=== PATIENT | female | born 1985 | race Caucasian/White ===

== ENCOUNTER → 2016-12-06 | Outpatient (CLI) | payer OTHER ==
[~2016-12-06] MED LIST: OXYC1SOL5 PO; PRENTAB72 PO; SENN1TAB11 PO; [UNRECOGNIZED DRUG - CODE] PO
== END ==
LOC: HPND 09:03
PROVIDERS: ATTEND Obstetrics & Gynecology
DX: O35.1XX0 Maternal care for (suspected) chromosomal abnormality in fetus, not applicable or unspecified (principal); Z3A.20 20 weeks gestation of pregnancy
CPT/HCPCS: 76805

== ENCOUNTER → 2016-12-29 | Outpatient (CLI) | payer OTHER | LOC: HPND 13:53 | PROVIDERS: ATTEND Obstetrics & Gynecology | DX: O35.8XX0 Maternal care for other (suspected) fetal abnormality and damage, not applicable or unspecified (principal) | CPT/HCPCS: 76811 ==

== ENCOUNTER 2017-04-14 00:11 | Inpatient (IN) | payer BC ==
[2017-04-14] VITALS (22 sets, daily range): BP systolic 114–138; BP diastolic 71–91; PULSE 52–64; RESP 16–18; TEMP 97.7–98.5; O2SAT 95–100
[~2017-04-14] VITALS: Ht 147.3 cm; Wt 66.0 kg
[2017-04-14] MEDS ORDERED: LACTATED RINGER'S 1000 ML INJ 1,000 ML IV SCH ×2 (00:57→13:23)
[2017-04-14] MEDS ORDERED: LACTATED RINGER'S 1000 ML INJ 1,000 ML IV PRN (00:57)
[2017-04-14] MEDS ORDERED: ONDANSETRON HCL 4 MG/2 ML VIAL IV PUSH PRN (01:00)
[2017-04-14] MEDS ORDERED: MINERAL OIL 10 ML VIAL TOPICAL PRN (01:00)
[2017-04-14] MEDS ORDERED: CITRIC ACID-SODIUM CITRATE LIQ 30 ML UDC PO SCH (01:00)
[2017-04-14] MEDS ORDERED: LIDOCAINE HCL 1% 50 ML VIAL I-DERMAL PRN (01:00)
[2017-04-14] MEDS ORDERED: SODIUM CHLORID 0.9% 500 ML INJ 500 ML IV PRN (01:00)
[2017-04-14] MEDS ORDERED: OXYTOCIN 30 UNITS-500ML PREMIX 500 ML IV ONE ×2 (01:00→08:30)
[2017-04-14] MEDS ORDERED: LIDOCAINE HCL 1% 50 ML VIAL INFIL PRN (01:00)
--- NOTE | 2017-04-14 01:07 | PD ---
HPI Chief Complaint leakage of fluid. Date Seen: Apr 14, 2017 Time Seen: 01:01 Travel History International Travel<30 Days: No Contact w/Intl Traveler<30Days: No Known Affected Area: No History of Present Illness HPI pt is a 31 y/o @ 38 6/7 weeks (gestational carrier) present w/ c/o lof. pt. states at ~ 1100 on 04/13/17 felt gush of fluid. +FM, no vb. pt. for sched repeat cd on 04/15/17. on exam pt. noted to be grossly srom. pt. states irreg ctxs. Weeks Gestation: 38 Para: 2 : 3 History Past Surgical History Narrative Surgical CD x 2. Family History Family History: Negative Social History Alcohol Use: No Tobacco Use: No Substance Abuse: No Allergies-Medications (Allergen,Severity, Reaction): Coded Allergies: No Known Allergies (Unverified , 03/28/12) Home Meds Active Scripts Oxycodone W/ Acetaminophen (Oxycodone/Acetaminophen 5-325 mg/5Ml) 1 Tab Tab, 2 TAB PO Q4H Y for PAIN SCALE 6 TO 10, #30 TAB Prov:Man Walker MD 09/27/14 Reported Medications Docusate Sod/Senna (Senna Plus 8.6-50 mg) 1 Tab Tab, 1 TAB PO BIDPRN, #30 03/31/12 Naproxen Sodium (Anaprox) 275 Mg Tab, 275 MG PO [id number], #30 03/31/12 Vit W/ Ferrous Fumara () Tab, 1 PO WHILE 03/28/12 Review of Systems Except as stated in HPI: all other systems reviewed are Neg Physical Exam Narrative GENERAL: Well-nourished, well-developed patient. SKIN: Warm and dry. HEAD: Normocephalic and atraumatic. EYES: No scleral icterus. No injection or drainage. ENT: No nasal drainage noted. Mucous membranes pink. Airway patent. NECK: Supple, trachea midline. No JVD. CARDIOVASCULAR: Regular rate and rhythm without murmurs, gallops, or rubs. RESPIRATORY: Breath sounds equal bilaterally. No accessory muscle use. BREASTS: Bilateral exam showed no masses , no retractions, no nipple discharge. ABDOMEN/GI: Abdomen soft, non-tender, bowel sounds present, no rebound, no guarding Gravid GENITOURINARY: External Genitalia: intact and normal in appearance Presentation: cephalic Membranes:ruptured Uterine Contractions: irreg FHT's: Category: 1 Variability: mod Decels: none EXTREMITIES: No cyanosis or edema. BACK: Nontender without obvious deformity. No CVA tenderness. NEUROLOGICAL: Awake and alert. Motor and sensory grossly within normal limits. Five out of 5 muscle strength in all muscle groups. Normal speech. Data Data Vital Signs Reviewed: Yes Orders Orders Ob (2e) Additional Admit Info (04/14/17 00:38) Admit To Inpatient (04/14/17 ) Code Status (04/14/17 00:57) Vital Signs (Adult) .Per protocol (04/14/17 00:57) Heart (04/14/17 00:57) Amnioinfusion (04/14/17 00:57) Urinary Catheter Management .ONCE (04/14/17 00:57) Diet Npo (04/14/17 Breakfast) Lactated Ringer's 1000 Ml Inj (Lr 1000 M (04/14/17 00:57) Lactated Ringer's 1000 Ml Inj (Lr 1000 M (04/14/17 00:57) Sodium Chlorid 0.9% 500 Ml Inj (Ns 500 M (04/14/17 01:00) Sodium Chlor 0.9% 1000 Ml Inj (Ns 1000 M (04/14/17 01:17) Lidocaine 1% Inj (50 Ml) (Xylocaine 1% I (04/14/17 01:00) Citric Acid-Sodium Citrate Liq (Bicitra (04/14/17 01:00) Ondansetron Inj (Zofran Inj) (04/14/17 01:00) Fentanyl Inj (Fentanyl Inj) (04/14/17 01:00) Fentanyl Inj (Fentanyl Inj) (04/14/17 01:00) Complete Blood Count With Diff (04/14/17 00:57) Hold Clot (04/14/17 00:57) Abo/Rh Blood Type (04/14/17 00:57) Urinalysis - C+S If Indicated (04/14/17 00:57) Drug Screen, Random Urine (04/14/17 00:57) Ob/Psych Drug Screen, Urine (04/14/17 00:57) Resp Oxygen Non Rebreathe Mask (04/14/17 ) ^ Epidural / Intrathecal Infus (04/14/17 00:57) Oxytocin 30 Units-500ml Premix (Pitocin (04/14/17 01:00) Lidocaine 1% Inj (50 Ml) (Xylocaine 1% I (04/14/17 01:00) Light Mineral Oil (Muri-Lube Oil) (04/14/17 01:00) Inpatient Certification (04/14/17 ) [facility] Medical Record Reviewed: Yes Plan @ 38 6/7 weeks w/ srom and h/o cd x2. pt. to have repeat cd. cd d/w pt. risks/benefits and alternatives d/w pt. all ? answered. pt. sign consent w/o coercion. Ozzie Quiros Jr., MD Apr 14, 2017 01:07
[2017-04-14] MEDS ORDERED: SODIUM CHLOR 0.9% 1000 ML INJ 1,000 ML IV PRN (01:17)
[2017-04-14 01:41] LABS: AUTOMATED NEUTROPHIL # 6.5 TH/MM3 (1.8-7.7); BASOPHIL % 0.5 % (0.0-2.0); EOSINOPHIL # 0.2 TH/MM3 (0-0.4); HEMATOCRIT 35.5 % (35.0-46.0); HEMOGLOBIN 12.7 GM/DL (11.6-15.3); LYMPH % 17.5 % (9.0-44.0); LYMPHOCYTE # 1.6 TH/MM3 (1.0-4.8); MEAN CELL VOLUME 83.9 FL (80.0-100.0); MEAN CORPUSCULAR HEMOGLOBIN 29.9 PG (27.0-34.0); MEAN CORPUSCULAR HGB CONC 35.7 % (32.0-36.0); MEAN PLATELET VOLUME 10.2 FL (7.0-11.0); MONO % 7.9 % (0.0-8.0); MONOCYTE # 0.7 TH/MM3 (0-0.9); NEUT % 72.1 % (16.0-70.0); PLATELET COUNT 182 TH/MM3 (150-450); RED BLOOD COUNT 4.24 MIL/MM3 (4.00-5.30); RED CELL DISTRIBUTION WIDTH 12.9 % (11.6-17.2)
[2017-04-14 02:02] LABS: AMORPHOUS SEDIMENT, URINE MOD; BACTERIA, URINE RARE /hpf; BILIRUBIN, URINE NEG (NEG); BLOOD, URINE MOD (NEG); GLUCOSE,URINE NEG (NEG); KETONE, URINE NEG (NEG); MUCUS URINE FEW /lpf (OCC); NITRITE,URINE NEG (NEG); SQUAMOUS EPITHELIAL CELL URINE 57 /hpf (0-5); URINE COLOR LIGHT-YELLOW (YELLW/STRAW); URINE LEUKOCYTE ESTERASE NEG (NEG)
--- NOTE | 2017-04-14 02:12 | HHI.HP ---
History & Physical H&P HPI Chief Complaint leakage of fluid. Date Seen: Apr 14, 2017 Time Seen: 01:01 Travel History International Travel<30 Days: No Contact w/Intl Traveler<30Days: No Known Affected Area: No History of Present Illness HPI pt is a 31 y/o @ 38 6/7 weeks (gestational carrier) present w/ c/o lof. pt. states at ~ 1100 on 04/13/17 felt gush of fluid. +FM, no vb. pt. for sched repeat cd on 04/15/17. on exam pt. noted to be grossly srom. pt. states irreg ctxs. Weeks Gestation: 38 Para: 2 : 3 History (Limited) History Past Surgical History Narrative Surgical CD x 2. Family History Family History: Negative Social History Alcohol Use: No Tobacco Use: No Substance Abuse: No Allergies-Medications Allergies-Medications (Allergen,Severity, Reaction): Coded Allergies: No Known Allergies (Unverified , 03/28/12) Home Meds Active Scripts Oxycodone W/ Acetaminophen (Oxycodone/Acetaminophen 5-325 mg/5Ml) 1 Tab Tab, 2 TAB PO Q4H Y for PAIN SCALE 6 TO 10, #30 TAB Prov:Man Walker MD 09/27/14 Reported Medications Docusate Sod/Senna (Senna Plus 8.6-50 mg) 1 Tab Tab, 1 TAB PO BIDPRN, #30 03/31/12 Naproxen Sodium (Anaprox) 275 Mg Tab, 275 MG PO [id number], #30 03/31/12 Vit W/ Ferrous Fumara () Tab, 1 PO WHILE 03/28/12 ROS Review of Systems Except as stated in HPI: all other systems reviewed are Neg Physical Exam Physical Exam Narrative GENERAL: Well-nourished, well-developed patient. SKIN: Warm and dry. HEAD: Normocephalic and atraumatic. EYES: No scleral icterus. No injection or drainage. ENT: No nasal drainage noted. Mucous membranes pink. Airway patent. NECK: Supple, trachea midline. No JVD. CARDIOVASCULAR: Regular rate and rhythm without murmurs, gallops, or rubs. RESPIRATORY: Breath sounds equal bilaterally. No accessory muscle use. BREASTS: Bilateral exam showed no masses , no retractions, no nipple discharge. ABDOMEN/GI: Abdomen soft, non-tender, bowel sounds present, no rebound, no guarding Gravid GENITOURINARY: External Genitalia: intact and normal in appearance Presentation: cephalic Membranes:ruptured Uterine Contractions: irreg FHT's: Category: 1 Variability: mod Decels: none EXTREMITIES: No cyanosis or edema. BACK: Nontender without obvious deformity. No CVA tenderness. NEUROLOGICAL: Awake and alert. Motor and sensory grossly within normal limits. Five out of 5 muscle strength in all muscle groups. Normal speech. Data Data Data Vital Signs Reviewed: Yes Orders Orders Ob (2e) Additional Admit Info (04/14/17 00:38) Admit To Inpatient (04/14/17 ) Code Status (04/14/17 00:57) Vital Signs (Adult) .Per protocol (04/14/17 00:57) Heart (04/14/17 00:57) Amnioinfusion (04/14/17 00:57) Urinary Catheter Management .ONCE (04/14/17 00:57) Diet Npo (04/14/17 Breakfast) Lactated Ringer's 1000 Ml Inj (Lr 1000 M (04/14/17 00:57) Lactated Ringer's 1000 Ml Inj (Lr 1000 M (04/14/17 00:57) Sodium Chlorid 0.9% 500 Ml Inj (Ns 500 M (04/14/17 01:00) Sodium Chlor 0.9% 1000 Ml Inj (Ns 1000 M (04/14/17 01:17) Lidocaine 1% Inj (50 Ml) (Xylocaine 1% I (04/14/17 01:00) Citric Acid-Sodium Citrate Liq (Bicitra (04/14/17 01:00) Ondansetron Inj (Zofran Inj) (04/14/17 01:00) Fentanyl Inj (Fentanyl Inj) (04/14/17 01:00) Fentanyl Inj (Fentanyl Inj) (04/14/17 01:00) Complete Blood Count With Diff (04/14/17 00:57) Hold Clot (04/14/17 00:57) Abo/Rh Blood Type (04/14/17 00:57) Urinalysis - C+S If Indicated (04/14/17 00:57) Drug Screen, Random Urine (04/14/17 00:57) Ob/Psych Drug Screen, Urine (04/14/17 00:57) Resp Oxygen Non Rebreathe Mask (04/14/17 ) ^ Epidural / Intrathecal Infus (04/14/17 00:57) Oxytocin 30 Units-500ml Premix (Pitocin (04/14/17 01:00) Lidocaine 1% Inj (50 Ml) (Xylocaine 1% I (04/14/17 01:00) Light Mineral Oil (Muri-Lube Oil) (04/14/17 01:00) Inpatient Certification (04/14/17 ) MDM MDM Medical Record Reviewed: Yes Plan @ 38 6/7 weeks w/ srom and h/o cd x2. pt. to have repeat cd. cd d/w pt. risks/benefits and alternatives d/w pt. all ? answered. pt. sign consent w/o coercion. Ozzie Quiros Jr., MD Apr 14, 2017 02:12
[2017-04-14] MEDS ORDERED: ceFAZolin 2 GM PREMIX 50 ML IV SCH (02:15)
[2017-04-14] MEDS ORDERED: MORPHINE SULFATE PF 5 MG/10 ML VIAL ONE (07:08)
[2017-04-14] MEDS ORDERED: ACETAMINOPHEN 1000 MG/100 ML 100 ML IV ONE (07:08)
--- NOTE | 2017-04-14 08:27 | PD.OB.DELI ---
Procedure Note Section Procedure Pre Op Diagnosis: (1) delivery delivered Post Op Diagnosis: (1) delivery delivered Performed by Man Walker Procedure: Repeat Low Transverse Sec Indication for delivery: Desired elective repeat (SROM at 23:30 ) Informed consent obtained: For anesthesia, For procedure Confirmed correct: Patient, Procedure, Site, Time-out taken Anesthesia: Spinal Monitoring during procedure: Blood pressure monitoring Urinary catheter: Inserted using sterile technique, To dependent drainage Sterile preparation: Duraprep Position: Supine with wedge to left side Operative Features Skin Incision: Pfannenstiel Uterine Incision: Low transverse w/knife / blunt ext Presentation: Occiput anterior Delivery date: Apr 14, 2017 Delivery time: 07:50 Delivery of infant: Uneventful Infant: Female, Single One Minute : 9 Five Minute : 9 Weight: 5# 15 oz Status of infant: Viable Estimated blood loss: 300 Procedure tolerated: Well Maternal Condition: Stable Condition: Stable Man Walker MD Apr 14, 2017 08:27
[2017-04-14] MEDS ORDERED: KETOROLAC TROMETHAMINE 60 MG/2 ML (IM) VIAL IM PRN (08:30)
[2017-04-14] MEDS ORDERED: SODIUM CHLORIDE 0.9% FLUSH 10 ML FLUSH IV FLUSH PRN (08:30)
[2017-04-14] MEDS ORDERED: SIMETHICONE 80 MG CHEWABLE TAB PO PRN (08:30)
[2017-04-14] MEDS ORDERED: oxyCODONE/ACETAMINOPHEN 5 MG/325 MG TAB PO PRN ×2 (08:30)
[2017-04-14] MEDS ORDERED: IBUPROFEN 600 MG TAB PO PRN (08:30)
[2017-04-14] MEDS ORDERED: EPIDURAL-DIPHENHYDRAMINE HCL 50 MG CAP PO PRN (08:45)
[2017-04-14] MEDS ORDERED: EPIDURAL-DO NOT ADMINISTER ANTICOAGULANTS PRN (08:45)
[2017-04-14] MEDS ORDERED: EPIDURAL-NALOXONE HCL 0.4 MG/ML AMP IV PUSH PRN (08:45)
[2017-04-14] MEDS ORDERED: EPIDURAL-DIPHENHYDRAMINE HCL 50 MG/ML VIAL IV PUSH PRN (08:45)
[2017-04-14] MEDS ORDERED: EPIDURAL-NO SYSTEMIC NARCOTICS PRN (08:45)
[2017-04-14] MEDS: ACETAMINOPHEN 1000 MG/100 ML 100 ML IV SCH ×2 (08:45→16:45)
[2017-04-14] MEDS ORDERED: SODIUM CHLORIDE 0.9% FLUSH 10 ML FLUSH IV FLUSH SCH (09:00)
--- NOTE | 2017-04-14 10:36 | MP ---
cc: Man Walker MD DATE OF OPERATION: 04/14/2017 PROCEDURE: Repeat low transverse section. PREOPERATIVE DIAGNOSIS: Ruptured membranes at 38 weeks and 6 days for a repeat section. POSTOPERATIVE DIAGNOSIS: Ruptured membranes at 38 weeks and 6 days for a repeat section. SURGEON: Man Walker MD POLICE PATROL LIEUTENANT: Joe Raymond MS-3 COMPLICATIONS: None. ANESTHESIA: Spinal, Raymon Mccallum CRNA and Keven Combs was the MD anesthesia ESTIMATED BLOOD LOSS: 500 mL PROCEDURE IN DETAIL: After informed consent, the patient taken to the operating room, where she was placed under spinal anesthesia, placed in the supine position, left lateral tilt. Abdomen, perineum and vagina were prepped and draped in the normal sterile fashion and a time-out was taken. After adequate anesthesia was assured, a Pfannenstiel skin incision was carried sharply through the skin to the fascia. The fascia was nicked in the midline. The incision was extended laterally using sharp dissection secondary to scar tissue from previous sections. We entered the abdomen and the incision had to be extended with sharp dissection secondary to scar tissue again. At this point, once the bladder blade was placed in the abdomen and the bladder flap was not needed, a low transverse uterine incision was then made, carried sharply into the uterine cavity. Clear fluid was noted. The incision was extended laterally using blunt traction. A hand was placed into the uterus. The infant's head was guided through the incision and using fundal pressure the infant's head readily came down, but did not deliver, so a vacuum was applied to the occiput portion. Gentle traction for less than 5 seconds upward delivered the baby without difficulty. There was a nuchal cord times one. The infant had delayed cord clamping for greater than 45 seconds and then it was clamped and cut and the was handed to pediatrics in attendance. It was dried and warmed while we were waiting on the cord 45 second delay. At this point, the cord blood was collected. The placenta was delivered manually. The uterus was exteriorized, wiped free from all remaining products of conception. The uterine incision was then closed with running locking stitch of chromic suture. Good hemostasis was achieved. A [id number] suture was placed for hemostasis. The uterus was placed back in the abdomen noted to be hemostatic. The peritoneum was closed with a chromic sutures. The fascia was closed with Vicryl sutures. The skin was closed with a subcuticular stitch. Each layer was noted to be hemostatic prior to closure. The patient tolerated the procedure well. MD DEQUAN Tavarez/LEE/neeraj , 08:32 AM , 09:31 AM
[2017-04-14] MEDS ORDERED: OXYTOCIN 10 UNIT/ML AMP IV ONE (12:00)
[2017-04-14] MEDS ORDERED: ONDANSETRON HCL 4 MG/2 ML VIAL IV ONE (12:00)
[2017-04-14] MEDS ORDERED: DEXAMETHASONE SOD PHOS 4 MG/ML VIAL IV ONE (12:00)
[2017-04-14] MEDS ORDERED: ROCURONIUM INJ 50 MG/5 ML SYRINGE IV PUSH ONE (12:00)
[2017-04-14] MEDS ORDERED: LACTATED RINGER'S 1000 ML INJ 1,000 ML IV ONE (12:00)
[2017-04-14] MEDS ORDERED: OXYTOCIN 30 UNITS-500ML PREMIX 500 ML IV PRN (18:30)
[2017-04-15] MEDS: ACETAMINOPHEN 1000 MG/100 ML 100 ML IV SCH (00:45)
--- NOTE | 2017-04-15 07:28 | HHI.OB ---
Subjective Post Day: 1 Remarks doing well Objective Vitals/I&O Vital Signs Date Time Temp Pulse Resp B/P (MAP) Pulse Ox O2 Delivery O2 Flow Rate FiO2 04/14/17 20:34 138/81 (100) 04/14/17 20:34 98.5 58 18 95 04/14/17 17:16 16 04/14/17 16:00 98.0 57 135/87 (103) 04/14/17 15:40 17 04/14/17 14:00 17 04/14/17 12:29 18 04/14/17 12:00 98.1 55 132/91 (105) 04/14/17 11:10 17 04/14/17 09:14 97.7 54 18 100 04/14/17 09:14 131/80 (97) 04/14/17 09:00 56 18 131/80 (97) 99 04/14/17 08:46 52 18 114/72 (86) 99 04/14/17 08:30 131/77 (95) 04/14/17 08:30 97.8 61 18 99 Objective Remarks GENERAL: Well-nourished, well-developed patient. ABDOMEN/GI: Abdomen soft, non-tender. incision clean and dry Fundus: Firm, non-tender at umbilicus. GENITOURINARY: Light to moderate bleeding. EXTREMITIES: No cyanosis or edema, non-tender, without signs of DVT. Medications and IVs Current Medications Medications (Trade) Dose Ordered Sig/Jorge Route Start Time Stop Time Status Last Admin Lactated Ringer's 1,000 ml @ 125 mls/hr Q8H IV 04/14/17 00:57 Lactated Ringer's 1,000 ml @ 3,000 mls/hr Q20M PRN IV 04/14/17 00:57 Sodium Chloride 500 ml @ 1,000 mls/hr ONCE PRN IV 04/14/17 01:00 Sodium Chloride 1,000 ml @ 100 mls/hr Q10H PRN IV 04/14/17 01:17 (Xylocaine 1% Inj (50 ml)) 0.1 ml UNSCH X1 PRN I-DERMAL 04/14/17 01:00 04/17/17 00:59 (Bicitra Liq) 30 ml INVENTORY CONTROL SUPERVISOR PO 04/14/17 01:00 04/18/17 00:59 04/14/17 07:08 (Zofran Inj) 4 mg Q6H PRN IV PUSH 04/14/17 01:00 (fentaNYL INJ) 50 mcg Q1H PRN IV PUSH 04/14/17 01:00 (fentaNYL INJ) 100 mcg Q1H PRN IV PUSH 04/14/17 01:00 (Xylocaine 1% Inj (50 ml)) 10 ml UNSCH X1 PRN INFIL 04/14/17 01:00 04/16/17 00:59 (Muri-Lube Oil) 10 ml UNSCH PRN TOPICAL 04/14/17 01:00 Cefazolin Sodium/ Dextrose 50 ml @ 100 mls/hr INVENTORY CONTROL SUPERVISOR IV 04/14/17 02:15 04/17/17 02:14 04/14/17 07:08 Lactated Ringer's 1,000 ml @ 100 mls/hr Q10H IV 04/14/17 13:23 04/15/17 09:22 Oxytocin 500 ml @ 100 mls/hr UNSCH X1 PRN IV 04/14/17 18:30 04/15/17 18:29 04/14/17 11:13 (NS Flush) 2 ml BID IV FLUSH 04/14/17 09:00 (NS Flush) 2 ml UNSCH PRN IV FLUSH 04/14/17 08:30 (Mylicon Chew) 80 mg QID PRN PO 04/14/17 08:30 (Motrin) 600 mg Q6H PRN PO 04/14/17 08:30 (Toradol Inj) 30 mg Q6H PRN IM 04/14/17 08:30 04/15/17 08:29 (Percocet 5-325 Mg) 1 tab Q4H PRN PO 04/14/17 08:30 (Percocet 5-325 Mg) 2 tab Q4H PRN PO 04/14/17 08:30 (M-M-R Ii Inj) 0.5 ml ONCE ONCE SQ 04/15/17 16:00 04/15/17 16:01 (Boostrix Inj) 0.5 ml ONCE ONCE IM 04/15/17 16:00 04/15/17 16:01 Miscellaneous Information NO SYSTEMIC NARCOTICS TO BE GIVEN FO... UNSCH PRN .XX 04/14/17 08:45 04/15/17 08:44 (Narcan Inj) 0.4 mg UNSCH PRN IV PUSH 04/14/17 08:45 04/15/17 08:44 (Benadryl Inj) 25 mg Q6H PRN IV PUSH 04/14/17 08:45 04/15/17 08:44 04/14/17 11:17 (Benadryl) 50 mg Q6H PRN PO 04/14/17 08:45 04/15/17 08:44 Miscellaneous Information ALL NURSING DEPARTMENTS UNSCH PRN .XX 04/14/17 08:45 04/15/17 08:44 Assessment/Plan Problem List: (1) delivery delivered ICD Codes: O82 - delivery delivered Status: Acute Discharge Planning doing well [facility] Man Walker MD Apr 15, 2017 07:28
--- NOTE | 2017-04-15 07:29 | HHI.DCPOC ---
Discharge Care Plan Diagnosis: (1) delivery delivered Report Symptoms to Your Doctor -Temperature above 100.5 degrees -Redness, of incision or excessive or foul smelling drainage -Unusual pain or calf pain -Increased vaginal bleeding -Painful or difficulty urinating -Feelings of extreme sadness or anxiety after 2 weeks Goals to Promote Your Health * To prevent worsening of your condition and complications * To maintain your health at the optimal level Directions to Meet Your Goals Take your medications as prescribed Follow your dietary instruction Follow activity as directed Ensure plenty of rest for recovery Drink fluids for hydration Keep your appointments as scheduled Take your immunizations and boosters as scheduled If your symptoms worsen call your PCP, if no PCP go to Urgent Care Center or Emergency Room Smoking is Dangerous to Your Health. Avoid second hand smoke Call the 24-hour crisis hotline for domestic abuse at Man Walker MD Apr 15, 2017 07:29
--- NOTE | 2017-04-15 07:32 | HHI.DS ---
Admission Date Apr 14, 2017 at 00:39 Discharge Date: Apr 15, 2017 Admitting Diagnosis Diagnosis: Delivery Date: Apr 14, 2017 Infant: Female, Single Brief History pt is a 31 y/o @ 38 6/7 weeks (gestational carrier) present w/ c/o lof. pt. states at ~ 1100 on 04/13/17 felt gush of fluid. +FM, no vb. pt. for sched repeat cd on 04/15/17. on exam pt. noted to be grossly srom. pt. states irreg ctxs. Hospital Course patient is doing well ppd# 1 ok for dc home Pt Condition on Discharge: Good Discharge Disposition: Discharge Home Discharge Instructions Diet Instructions: As Tolerated, No Restrictions Activities You Can Perform: Pelvic Rest Activities to Avoid: Driving for 24 hrs Follow up Referrals: NEUROSURGICAL NURSE - 2 Weeks @ [facility] with Man Walker MD, John William C. MD Apr 15, 2017 07:32
[2017-04-15] MEDS ORDERED: OXYC1TAB63 PO (07:35)
[2017-04-15 07:49] VITALS: BP 117/75; PULSE 71
[2017-04-15 07:50] VITALS: RESP 18; TEMP 97.9; O2SAT 98
[2017-04-15 09:37] LABS: AUTOMATED NEUTROPHIL # 6.7 TH/MM3 (1.8-7.7); BASOPHIL % 0.3 % (0.0-2.0); EOSINOPHIL # 0.1 TH/MM3 (0-0.4); EOSINOPHIL % 1.3 % (0.0-4.0); HEMATOCRIT 34.9 % (35.0-46.0); HEMOGLOBIN 12.2 GM/DL (11.6-15.3); LYMPH % 14.8 % (9.0-44.0); LYMPHOCYTE # 1.3 TH/MM3 (1.0-4.8); MEAN CELL VOLUME 85.7 FL (80.0-100.0); MEAN CORPUSCULAR HEMOGLOBIN 29.9 PG (27.0-34.0); MEAN CORPUSCULAR HGB CONC 34.9 % (32.0-36.0); MEAN PLATELET VOLUME 9.9 FL (7.0-11.0); MONO % 5.9 % (0.0-8.0); MONOCYTE # 0.5 TH/MM3 (0-0.9); NEUT % 77.7 % (16.0-70.0); PLATELET COUNT 172 TH/MM3 (150-450); RED BLOOD COUNT 4.07 MIL/MM3 (4.00-5.30); RED CELL DISTRIBUTION WIDTH 12.9 % (11.6-17.2); WHITE BLOOD COUNT 8.6 TH/MM3 (4.0-11.0)
[2017-04-15] MEDS ORDERED: MEASLES, MUMPS, RUBELLA VACCINE 0.5 ML VIAL SQ ONE (16:00)
[2017-04-15] MEDS ORDERED: DIPHTH/TETANUS/ACEL PERTUSSIS (BOOSTER) 0.5 ML VIAL/PFS IM ONE (16:00)
== END 2017-04-15 17:09 | disposition home or self-care (01) | DRG 766 ==
LOC: HOBED 00:11 → H2EB 00:39 → H1EA 09:30
PROVIDERS: ADMIT Obstetrics & Gynecology; ATTEND Obstetrics & Gynecology
PROC: 10D00Z1 Extraction of Products of Conception, Low, Open Approach (ICD-10-PCS; principal; 2017-04-14)
DX: O34.211 Maternal care for low transverse scar from previous cesarean delivery (principal); O69.81X0 Labor and delivery complicated by cord around neck, without compression, not applicable or unspecified; Z37.0 Single live birth; Z3A.38 38 weeks gestation of pregnancy
CPT/HCPCS: 76815; 80307; 81001; 85025; J0131; J0690; J1100; J1200; J2274; J2405; J2590; J7120